=== PATIENT | female | born 1995 | race Asian ===

== ENCOUNTER 2019-04-04 01:37 | Emergency (ER) | payer OTHER ==
[~2019-04-04] VITALS: Ht 154.9 cm; Wt 86.2 kg
[2019-04-04] MEDS ORDERED: TRAMADOL HCL50 MG ORAL (01:44)
[2019-04-04] MEDS ORDERED: OMEPRAZOLE10 M1 ORAL (01:44)
[2019-04-04] MEDS ORDERED: SINGULAIR10 MG ORAL (01:44)
[2019-04-04 02:02] VITALS: BP 134/85
[2019-04-04] MEDS ORDERED: Morphine Sulfate 2mg/ml Inj(IV/IM USE ONLY) IM ONE (02:15)
[2019-04-04] MEDS ORDERED: RABIES IMMUNE GLOBULIN 300 UNIT/2 ML IM ONE ×3 (02:15→02:30)
[2019-04-04] MEDS ORDERED: LET 3ml Soln TOPIC ONE (02:45)
--- NOTE | 2019-04-04 03:06 | Emergency Room Report ---
History of Present Illness General Chief Complaint: Animal Bite Source: Patient Present Illness HPI 23-year-old female who presents ED for evaluation. Status post dog bite. 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 Dog is a pit bull. Not a known client of the clinic. Unknown if dog has vaccinations. Pain is dull, 8 out of 10, nonradiating. This is up-to-date. Denies any other injuries. No other aggravating or relieving factors. Denies any other associated symptoms Allergies: Coded Allergies: PENICILLINS (Verified Allergy, Unknown, 04/04/19) SULFA (SULFONAMIDE ANTIBIOTICS) (Verified Allergy, Unknown, 04/04/19) Patient History Past Medical History: none Past Surgical History: none Pertinent Family History: none Social History: Denies: smoking, alcohol use, drug use Last Menstrual Period: 03/12/19 Now: No Immunizations: UTD Reviewed Nursing Documentation: PMH: Agreed; PSxH: Agreed Nursing Documentation-PMH Hx Cardiac Problems: Yes - Lupus Review of Systems All Other Systems: negative except mentioned in HPI Physical Exam Vital Signs Date Time Temp Pulse Resp B/P (MAP) Pulse Ox O2 Delivery O2 Flow Rate FiO2 04/04/19 01:40 98.2 100 18 134/85 (101) 100 Room Air Sp02 EP Interpretation: reviewed, normal General Appearance: alert, GCS 15, non-toxic, mild distress Head: normocephalic, atraumatic Eyes: bilateral eye normal inspection, bilateral eye PERRL ENT: hearing grossly normal, normal pharynx, no angioedema, normal voice Neck: full range of motion, supple/symm/no masses Respiratory: chest non-tender, lungs clear, normal breath sounds, speaking full sentences Cardiovascular #1: regular rate, rhythm, no edema Cardiovascular #2: 2+ carotid (R), 2+ carotid (L), 2+ radial (R), 2+ radial (L) , 2+ dorsalis pedis (R), 2+ dorsalis pedis (L) Gastrointestinal: normal bowel sounds, soft, non-distended, no guarding, no rebound, other - circular dog bite to R side abdomen Rectal: deferred Genitourinary: normal inspection, no CVA tenderness Musculoskeletal: back normal, normal range of motion, gait/station normal, other - dog bite to web spacing L hand. Neurologic: alert, motor strength/tone normal, oriented x3, sensory intact, responsive, speech normal Psychiatric: judgement/insight normal, memory normal, mood/affect normal, no suicidal/homicidal ideation Reflexes: 3+ bicep (R), 3+ bicep (L), 3+ tricep (R), 3+ tricep (L), 3+ knee (R) , 3+ knee (L) Skin: other - dog bite to L hand, R side abdomen Lymphatic: no adenopathy Medical Decision Making Diagnostic Impression: Primary Impression: Dog bite Qualified Codes: W54.0XXA - Bitten by dog, initial encounter ER Course Hospital Course 23-year-old F presents ED c/o L hand, abdomen dog bite Differential diagnoses include: abscess, cellulitis, laceration Clinical course Patient placed on stretcher. After initial history, physical exam reveals female in no acute distress. There is a laceration between the webspaces on the left hand. There is also a circular dog bite on the right side abdomen. Abdomen is otherwise soft. No guarding or rebound. Does not appear deep. Wound irrigated. States her tetanus is up-to-date. Patient is concerned about rabies. I discussed the risks and benefits of starting treatment and patient states she wishes to proceed with treatment. Rabies vaccine is not available in the hospital. I discussed this with the patient. She wishes to proceed forward with rabies immunoglobulin treatment. Majority of the immunoglobulin was injected around the wounds on the L hand abdomen. remainder of immunoglobulin was then injected in the thigh. Given clindamycin in ED Patient states she will go to another hospital tonight to receive the rabies vaccine. Patient is then instructed on the schedule of the vaccine which is at than 3 days, 7 days, 10 days, 14 days, 21 days. Patient states she understands the instructions and will go to another hospital. Safe for discharge for close outpatient follow-up. Diagnosis -dog bite Stable and discharged to home with prescription Rx clindamycin, Tylenol #3. Proceed to another ER to recieve rabies vaccine. followup with PMD. Return to ED if symptoms recur or worsen Last Vital Signs Date Time Temp Pulse Resp B/P (MAP) Pulse Ox O2 Delivery O2 Flow Rate FiO2 04/04/19 02:02 98.2 89 18 134/85 100 Room Air Status: improved Disposition: HOME, SELF-CARE Condition: Stable Scripts Ondansetron Odt* (ZOFRAN ODT*) 4 Mg Tab.rapdis 4 MG BC EVERY 6 HOURS PRN for Nausea & Vomiting, #20 TAB 0 Refills Prov: Yusuf Rogel MD 04/04/19 Clindamycin Hcl (CLINDAMYCIN HCL) 300 Mg Capsule 300 MG ORAL THREE TIMES A DAY, #21 CAP Prov: Yusuf Rogel MD 04/04/19 Acetaminophen With Codeine (T#3) (TYLENOL #3 TAB*) Y Tab 1 TAB ORAL Q8H PRN for For Pain for 3 Days, #12 TAB Prov: Yusuf Rogel MD 04/04/19 Referrals: NON PHYSICIAN (PCP) Yusuf Rogel MD Apr 04, 2019 03:06
[2019-04-04] MEDS ORDERED: CLINDAMYCIN HC300 MG ORAL (03:19)
[2019-04-04] MEDS ORDERED: ACETAMINOPHEN-1 EAC1 ORAL (03:19)
[2019-04-04] MEDS ORDERED: ONDANSETRON ODT4 MG BC (03:30)
[2019-04-04] MEDS ORDERED: Clindamycin 150mg cap ORAL ONE (03:30)
[2019-04-04 03:38] VITALS: BP 134/85
== END 2019-04-04 03:39 | disposition home or self-care (01) ==
LOC: EMR 02:02
DX: S61.452A Open bite of left hand, initial encounter (principal); S31.159A Open bite of abdominal wall, unspecified quadrant without penetration into peritoneal cavity, initial encounter; W54.0XXA Bitten by dog, initial encounter; Y93.89 Activity, other specified; Y92.89 Other specified places as the place of occurrence of the external cause; Z88.0 Allergy status to penicillin; Z88.2 Allergy status to sulfonamides
CPT/HCPCS: 90375; 96372; 99283; G0009; J2270